=== PATIENT | female | born 1975 | race Caucasian/White ===

== ENCOUNTER 2017-03-19 21:02 | Emergency (ER) | payer BC ==
--- NOTE | 2017-03-19 21:07 | PDOC ---
History of Present Illness - General History Source: Patient Exam Limitations: No Limitations <Ronna Dominguez - Last Filed: 03/19/17 21:31> - General History Source: Patient Exam Limitations: No Limitations <ValerieMaurylizaRamiro I - Last Filed: 03/19/17 22:37> - General Chief Complaint: Lightheaded Stated Complaint: LIGHTHEADED Time Seen by Provider: 03/19/17 21:06 - History of Present Illness Initial Comments: 03/19/17 21:30 The patient is a 41 year old female, with a significant past medical history of morbid obesity, hypertension, diabetes, GERD and asthma, who presents s/p near syncopal episode earlier this evening. The patient reports she went shopping with her daughter, when in the parking lot she developed palpitations, shortness of breath, dizziness, lightheadedness, and felt as though she were going to pass out. Patient reports this has happened to her in the past due to her history of uncontrolled diabetes. Patient reports she is not on any medications, because there are certain days where her sugar is really high and others where her sugar is really low. Patient reports she has had a stress test in the past, which was never completed due to abnormal results. Patient denies any chest pain, diaphoresis, or lower extremity edema. Patient denies any abdominal pain, nausea, vomiting, diarrhea, or constipation. She denies any fever, chills, cough, headache, or weakness. She denies any recent travel or sick contacts. Patient reports she had her LMP lasted approximately 4 weeks, and ended about 2 days ago. Patient admits she has a history of ETOH abuse, and over the past month she has been drinking heavily. PAST MEDICAL HISTORY: no significant history PAST SURGICAL HISTORY: Gastric bypass, Carpal tunnel FAMILY HISTORY: Heart disease. SOCIAL HISTORY: Pt lives with family and is employed. Former smoker. ETOH abuse. No recreational drug use. MEDICATIONS: reviewed ALLERGIES: As per nursing notes General: No fevers or chills, no weakness, no weight loss HEENT: No change in vision. No sore throat. No ear pain CardioVascular: Yes shortness of breath, palpitations. No chest pain, diaphoresis, or lower extremity edema Respiratory: Yes shortness of breath. No cough, or wheezing. Gastrointestinal: No nausea, vomiting, diarrhea or constipation, No rectal bleeding Genitourinary: No dysuria, hematuria, or frequency Musculoskeletal: No joint or muscle pain or swelling Neurologic: Yes near syncope, dizziness, lightheadedness. No headache. Psychiatric: No depression Skin: No rashes or easy bruising Endocrine: No increased thirst or abnormal weight change Allergic: No skin or latex allergy All other systems reviewed and normal General: Well-nourished well-developed individual, no acute distress. Morbidly obese HEENT: Throat: Normal, tonsils normal, no erythema or exudate Neck: Supple, no meningeal signs, no lymphadenopathy Eyes::Pupils equal reactive and round, extraocular motion intact Chest: Nontender to palpation Cardiac: S1-S2 normal, regular rate and rhythm, no murmurs rubs or gallops Respiratory: Lungs clear to auscultation bilateral Abdomen: Soft, nondistended, normal bowel sounds, nontender to palpation diffusely Extremities: Warm, dry, no cyanosis, clubbing, or edema Skin: No rashes Neuro: Alert and oriented x3, nonfocal exam, grossly intact, normal gait Psych: Normal mood and affect (Dominguez,Giomilsy) 03/19/17 22:26 A portion of this note was documented by scribe services under my direction. I have reviewed the details of the note, within reason, and agree with the documentation. The case summary and management plan written by me. EKG normal sinus rhythm at a rate of 101, no acute ST-T wave changes. This is a 41-year-old female who comes in complaining of feeling lightheaded. Patient was accompanied by her . Patient on the initial interview stated that she has had history of hypertension, diabetes and there controlled by diet and exercise. Patient had a fingerstick here in the emergency room was 104. Patient on further interview with night and admitted to being an alcoholic and said that she has been drinking heavily for the last month. Patient's blood alcohol in the emergency room was 431. Patient requesting that I give her Librium so that she could detox herself and not have to go to a detox program. After discussion with her and her she did agree to an inpatient detox and the will go to [facility] at 8 AM tomorrow morning for detox. [facility] was called and given her information and will be expecting her at 8 AM. (Ramiro Edwards I) Past History <Ronna Dominguez - Last Filed: 03/19/17 21:31> - Past Medical History Anemia: No Asthma: Yes Cancer: No Cardiac Disorders: No CVA: No COPD: No CHF: No Dementia: No Diabetes: Yes (DIET CONTROLLED) GI Disorders: Yes (GERD) Disorders: No HTN: No Hypercholesterolemia: No Kidney Stones: No Liver Disease: No Seizures: No Thyroid Disease: No - Surgical History Abdominal Surgery: Yes (1997 GASTRIC BYPASS) Neurologic Surgery: Yes (CARPAL TUNNEL BILATERAL) - Reproductive History PID: No - Suicide/Smoking/Psychosocial Hx Smoking History: Former smoker Have you smoked in the past 12 months: No Number of Cigarettes Smoked Daily: 1 If you are a former smoker, when did you quit?: 2010 'Breaking Loose' booklet given: 03/30/14 Hx Alcohol Use: Yes Drug/Substance Use Hx: No Substance Use Type: Alcohol Hx Substance Use Treatment: Yes <Ramiro Edwards I - Last Filed: 03/19/17 22:37> - Past Medical History Allergies/Adverse Reactions: Allergies Allergy/AdvReac Type Severity Reaction Status Date / Time cefprozil [From Cefzil] Allergy Verified 03/19/17 21:05 celecoxib [From Celebrex] Allergy Verified 03/19/17 21:05 cephalexin monohydrate Allergy Verified 03/19/17 21:05 [From Keflex] clindamycin Allergy Verified 03/19/17 21:05 Penicillins Allergy Verified 03/19/17 21:05 aspirin AdvReac Nausea Verified 03/19/17 21:05 Home Medications: Ambulatory Orders NK [No Known Home Medication] 03/19/17 Cardiac Specific PMH - Complaint Specific PMHX Pacemaker: No <Ramiro Edwards I - Last Filed: 03/19/17 22:37> - Vital Signs Last Vital Signs Temp Pulse Resp BP Pulse Ox 98 F 107 H 16 151/100 95 03/19/17 21:07 03/19/17 21:07 03/19/17 21:07 03/19/17 21:07 03/19/17 21:07 Heart Score/ECG Review - History History: Slightly suspicious - Electrocardiogram EKG: Non specific repolarization disturbance - Age Age: </= 45 - Risk Factors Risk Factors Heart Score: Yes Hx Hypercholesterolemia, Yes Hx Hypertension, Yes Hx Diabetes, Yes Positive family hx of cardiac disease Based on the list above the patient has:: >/=3 risk factors or Hx atherosclerotic disease - Troponin Troponin: </= normal limit - Score Heart Score - Total: 3 <Ramiro Edwards I - Last Filed: 03/19/17 22:37> ED Treatment Course - LABORATORY CBC & Chemistry Diagram: 03/19/17 21:36 03/19/17 21:36 <Ramiro Edwards I - Last Filed: 03/19/17 22:37> - ADDITIONAL ORDERS Additional order review: Laboratory Results 03/19/17 03/19/17 03/19/17 21:36 21:36 21:36 Sodium Potassium Chloride Carbon Dioxide Anion Gap BUN Creatinine Creat Clearance w eGFR Random Glucose Calcium Total Bilirubin AST ALT Alkaline Phosphatase Creatine Kinase 144 Troponin I < 0.03 L Total Protein Albumin Urine Color Urine Appearance Urine pH Ur Specific [place] Urine Protein Urine Glucose (UA) Urine Ketones Urine Blood Urine Nitrite Urine Bilirubin Urine Urobilinogen Ur Leukocyte Esterase Urine RBC Urine WBC Ur Epithelial Cells Urine Bacteria Urine HCG, Qual Negative Alcohol, Quantitative 431.2 H* 03/19/17 03/19/17 21:36 21:36 Sodium 136 Potassium 3.9 Chloride 97 L Carbon Dioxide 25 Anion Gap 14 BUN 8 Creatinine 0.6 Creat Clearance w eGFR > 60 Random Glucose 92 Calcium 8.1 L Total Bilirubin 1.1 H AST 254 H ALT 71 H Alkaline Phosphatase 121 H Creatine Kinase Troponin I Total Protein 7.1 Albumin 3.8 Urine Color Yellow Urine Appearance Clear Urine pH 7.0 Ur Specific [place] 1.010 Urine Protein Negative Urine Glucose (UA) Negative Urine Ketones Negative Urine Blood Trace-lysed H Urine Nitrite Negative Urine Bilirubin Negative Urine Urobilinogen 0.2 Ur Leukocyte Esterase Negative Urine RBC 1-2 Urine WBC 0-2 Ur Epithelial Cells Few Urine Bacteria Few Urine HCG, Qual Alcohol, Quantitative 03/19/17 21:36 RBC 3.62 MCV 93.1 MCHC 33.8 RDW 18.4 H MPV 8.0 Neutrophils % 26.4 L Lymphocytes % 52.8 H Monocytes % 15.3 H Eosinophils % 1.9 Basophils % 3.6 H - RADIOLOGY Radiology Studies Ordered: Category Date Time Status CHEST X-RAY PORTABLE* [RAD] Stat Radiology 03/19/17 21:25 Completed *DC/Admit/Observation/Transfer <Ronna Dominguez - Last Filed: 03/19/17 21:31> <Ramiro Edwards I - Last Filed: 03/19/17 22:37> Diagnosis at time of Disposition: Acute alcohol intoxication Qualifiers: Complication of substance-induced condition: uncomplicated Qualified Code(s): F10.929 - Alcohol use, unspecified with intoxication, unspecified Alcohol dependence Qualifiers: Substance use status: with intoxication Complication of substance-induced condition: with unspecified complication Qualified Code(s): F10.229 - Alcohol dependence with intoxication, unspecified - Discharge Dispostion Disposition: HOME Condition at time of disposition: Stable - Patient Instructions Additional Instructions: It is very important that you get the help that the doctor discussed and recommended. Return to the emergency department immediately with ANY new, persistent or worsening symptoms. Continue any medications as previously prescribed by your physician. You should follow up with your primary doctor as soon as possible regarding today's emergency department visit. . Please make sure your doctor reviews the results of your emergency evaluation. Thank you for coming to the Emergency Department today for your care. It was a pleasure to see you today. Please note that your evaluation is INCOMPLETE until you follow-up with your doctor. - Attestations Scribe Attestion: 03/19/17 21:31 Documentation prepared by Ronna Dominguez, acting as medical coding instructor for Ramiro Edwards MD. (Ronna Dominguez)
[2017-03-19 21:11] VITALS: BP 151/100; PULSE 107; TEMP 98; BMI 38.7
[2017-03-19] MEDS ORDERED: HEMOQUE TEST 1 EACH EACH ONE (21:14)
[2017-03-19 21:46] LABS: URINE APPEARANCE Clear; URINE BILIRUBIN Negative (NEGATIVE); URINE GLUCOSE (UA) Negative (NEGATIVE); URINE KETONE Negative (NEGATIVE); URINE LEUK ESTERASE Negative (NEGATIVE); URINE NITRITE Negative (NEGATIVE); URINE PROTEIN Negative (NEGATIVE); URINE UROBILINOGEN 0.2 (0.2-1.0)
[2017-03-19 21:48] LABS: URINE BLOOD Trace-lysed (NEGATIVE); URINE COLOR YELLOW
[2017-03-19 21:51] LABS: BASOPHIL 3.6 % (0-2.0); EOSINOPHIL 1.9 % (0-4.5); MCH 31.4 pg (25.7-33.7); MCHC 33.8 g/dl (32.0-36.0); MEAN CELL VOLUME 93.1 fl (80-96); NEUTROPHILS 26.4 % (42.8-82.8); PLATELET COUNT 186 K/MM3 (134-434); RDW 18.4 % (11.6-15.6); WHITE BLOOD COUNT 4.3 K/mm3 (4.0-10.8)
[2017-03-19 21:58] LABS: URINE BACTERIA FEW /hpf (NEGATIVE); URINE WBC 0-2 (3-5)
[2017-03-19 22:02] LABS: CPK 144 IU/L (26-192)
[2017-03-19 22:03] LABS: ALBUMIN 3.8 g/dl (3.5-5.0); ALK PHOS 121 U/L (32-92); ANION GAP 14 (8-16); BILIRUBIN,TOTAL 1.1 mg/dl (0.2-1.0); CALCIUM 8.1 mg/dl (8.4-10.2); CO2 25 mmol/L (22-28); CREATININE 0.6 mg/dl (0.6-1.3); GLUCOSE,RANDOM 92 mg/dl (74-106); SGOT/AST 254 U/L (10-42); SGPT/ALT 71 U/L (10-40); TOT PROT 7.1 g/dl (6.4-8.3)
[2017-03-19 22:10] LABS: TROPONIN I (DFP) < 0.03 ng/ml (0.03-0.50)
--- NOTE | 2017-03-20 20:00 | EKG ---
Test Reason : Blood Pressure : / mmHG Vent. Rate : 101 BPM Atrial Rate : 101 BPM P-R Int : 164 ms QRS Dur : 088 ms QT Int : 404 ms P-R-T Axes : 047 -20 019 degrees QTc Int : 523 ms POOR DATA QUALITY, INTERPRETATION MAY BE ADVERSELY AFFECTED SINUS TACHYCARDIA NONSPECIFIC T WAVE ABNORMALITY OTHERWISE NORMAL ECG NO PREVIOUS ECGS AVAILABLE Confirmed by VIVIEN GARCIA MD ([id number]) on 03/20/2017 8:00:31 PM Referred By: EDDIE Confirmed By:VIVIEN GARCIA MD
== END 2017-03-19 22:38 | disposition home or self-care (01) ==
LOC: FER 21:02
DX: F10.929 Alcohol use, unspecified with intoxication, unspecified (principal); E66.01 Morbid (severe) obesity due to excess calories; E11.9 Type 2 diabetes mellitus without complications; J45.909 Unspecified asthma, uncomplicated; K21.9 Gastro-esophageal reflux disease without esophagitis
CPT/HCPCS: 36415; 71010-TC; 80053; 80307; 81003; 81015; 82550; 84484; 84703; 85025; 85379; 93005; 99283-25